=== PATIENT | female | born 1945 | race Caucasian/White ===

== ENCOUNTER 2020-11-24 06:09 | Emergency (ER) | payer MEDICARE ==
[~2020-11-24] VITALS: Ht 165.1 cm; Wt 113.4 kg
[2020-11-24 06:09] VITALS: BP_SYST 90
[2020-11-24] MEDS ORDERED: ATROPINE SULFATE 1 MG/10 ML SYRINGE IVP ONE ×2 (06:10→07:00)
[2020-11-24] MEDS ORDERED: ETOMIDATE 20 MG/ 10 ML VIAL (AMIDATE) IVP ONE (06:10)
[2020-11-24] MEDS ORDERED: SODIUM BICARBONATE 8.4% JECT 50 MEQ/50 ML SYRINGE IVP ONE (06:10)
[2020-11-24] MEDS ORDERED: EPINEPHrine JECT 0.1 MG/ML SYR IVP ONE (06:10)
[2020-11-24] MEDS ORDERED: LIDOCAINE JECT 2% PF 100 MG/5ML SYRINGE IVP ONE (07:00)
[2020-11-24] MEDS ORDERED: NACL 0.9% 1,000 ML IV ONE (07:00)
[2020-11-24 07:05] LABS: BASOPHILS # (AUTO) 0.1 K/uL (0.0-0.2); BASOPHILS % (AUTO) 0.7 % (0.0-2.0); EOSINOPHILS # (AUTO) 0.1 K/uL (0.0-0.4); EOSINOPHILS % (AUTO) 0.7 % (0.0-4.0); HEMATOCRIT 46.3 % (36-48); HEMOGLOBIN 14.2 g/dL (12.0-16.0); LYMPHOCYTES # (AUTO) 5.1 K/uL (1.0-5.5); LYMPHOCYTES % (AUTO) 31.2 % (20.5-51.5); MEAN CORPUSCULAR HEMOGLOBIN 30 pg (27-31); MEAN CORPUSCULAR HGB CONC 31 % (32-36); MEAN CORPUSCULAR VOLUME 98 fL (79.0-98.0); MONOCYTES % (AUTO) 6.1 % (1.7-9.3); NEUTROPHILS # (AUTO) 10.1 K/uL (1.8-7.7); NEUTROPHILS % (AUTO) 61.3 % (40.0-70.0); PLATELET COUNT (AUTO) 238 K/uL (130-430); RED BLOOD CELL COUNT(AUTO) 4.74 MIL/uL (4.2-6.2); RED CELL DISTRIBUTION WIDTH 14.4 % (9.0-15.0); WHITE BLOOD COUNT (AUTO) 16.4 K/uL (4.8-10.8)
[2020-11-24 07:13] LABS: ANION GAP 22 (5-15); CALCIUM 9.8 mg/dL (8.4-11.0); CHLORIDE 101 mmol/L (98-107); CREATININE 1.65 mg/dL (0.55-1.30); GLUCOSE 384 mg/dL (70-99); SODIUM SERUM 138 mmol/L (136-145); UREA NITROGEN, BLOOD 33 mg/dL (8-21)
[2020-11-24] MEDS ORDERED: ROSU20TA2 PO (07:13)
[2020-11-24] MEDS ORDERED: CLOP75TA32 PO (07:13)
[2020-11-24] MEDS ORDERED: NOR10 PO (07:13)
[2020-11-24 07:15] VITALS: BP_SYST 135
[2020-11-24 07:16] LABS: PROTHROMBIN TIME 10.1 SECS (9.5-12.5)
[2020-11-24] MEDS ORDERED: ATEN50TA PO (07:16)
[2020-11-24 07:27] LABS: ALANINE AMINOTRANSFERASE 26 U/L (12-78); ALBUMIN 2.9 g/dL (3.4-4.8); ASPARTATE AMINOTRANSFERASE 42 U/L (10-37); TOTAL BILIRUBIN 0.2 mg/dL (0.0-1.0)
[2020-11-24 07:40] LABS: BILIRUBIN,URINE NEGATIVE (NEGATIVE); BLOOD, URINE NEGATIVE (NEGATIVE); CLARITY/URINE CLEAR (CLEAR); COLOR,URINE YELLOW (YELLOW); GLUCOSE,URINE NEGATIVE (NEGATIVE); KETONES,URINE NEGATIVE (NEGATIVE); LEUKOCYTE ESTERASE ,URINE 2+ (NEGATIVE); NITRITE, URINE NEGATIVE (NEGATIVE); PH,URINE 5.5 (5.0-8.0); PROTEIN URINE NEGATIVE (NEGATIVE); UROBILINOGEN,URINE 0.2 (0.2-1.0)
[2020-11-24 07:59] LABS: BACTERIA,URINE MODERATE /HPF (None Seen); MUCUS,URINE 1+ /LPF (None Seen); RBC,URINE 0-3 /HPF (0-3)
[2020-11-24 08:02] LABS: BARBITURATE, URINE NEGATIVE (NEG <=200); BENZODIAZEPINE, URINE NEGATIVE (NEG <=150); CANNABINOID, URINE NEGATIVE (NEG <=50); COCAINE, URINE NEGATIVE (NEG <=150); METHAMPHETAMINES SCREEN,URINE NEGATIVE (NEG <=500); OPIATE, URINE NEGATIVE (NEG <=100); PHENCYCLIDINE SCREEN,URINE NEGATIVE (NEG <=25); UR TRICYCLIC ANTIDEPRESSANTS NEGATIVE (NEG <=300); URINE AMPHETAMINE NEGATIVE (NEG <=500); URINE METHADONE NEGATIVE (NEG <=200); URINE OXYCODONE SCREEN NEGATIVE (NEG <=100); URINE PROPOXYPHENE SCREEN NEGATIVE (NEG <=300)
== END 2020-11-24 13:29 ==
LOC: SED 06:09
DX: I46.9 Cardiac arrest, cause unspecified (principal); J81.0 Acute pulmonary edema; Z79.899 Other long term (current) drug therapy
CPT/HCPCS: 31500; 36415; 71045; 80053; 80061; 80307; 81000; 83605; 83880; 84484; 85025; 85610; 85730; 86886; 86900; 86901; 87040; 87086; 92950; 94640; 99285; J0171; J0461; J3490; 94002